=== PATIENT | female | born 1940 | race Caucasian/White ===

== ENCOUNTER → 2016-05-21 | Outpatient (CLI) | payer MEDICARE, BC ==
[~2016-05-21] MED LIST: ATEN-102 PO; ATEN50TA PO; ATOR40TA16 PO; ATOR40TA49 PO; BACT800T5 PO; BENA20TA PO; BENA20TA3 PO; CALC-179; CALC250T PO; CLOP75 PO; CLOP75TA PO; ESTR42.5V VAGINAL; LEVO.15 PO; LEVO150T7 PO; LORA-373 PO; LORA-392 PO; NITR1CAP37 PO; PROP225T PO; PROP300T PO; RYTH150T PO; RYTH225C PO; TAB-TAB PO
[2016-05-21 14:54] LABS: BACTERIA, URINE MOD /hpf; BLOOD, URINE TRACE (NEG); COMMENT (UR) CULTURE INDICATED; CULTURE IF INDICATED CULTURE INDICATED; GLUCOSE,URINE NEG (NEG); KETONE, URINE NEG (NEG); URINE COLOR YELLOW (YELLW/STRAW)
[2016-05-21 14:56] LABS: NITRITE,URINE POS (NEG)
== END ==
LOC: CLAB 14:33
PROVIDERS: ATTEND Obstetrics & Gynecology Gynecology
DX: N39.0 Urinary tract infection, site not specified (principal)
CPT/HCPCS: 81001; 87077; 87086; 87186

== ENCOUNTER 2016-08-04 10:45 | Emergency (ER) | payer MEDICARE, BC ==
[~2016-08-04 10:45] MED LIST changes: -ATEN-102 PO; -ATOR40TA49 PO; -CALC250T PO; -CLOP75 PO; -LEVO.15 PO; -LORA-392 PO; -PROP300T PO; -RYTH150T PO; -RYTH225C PO; -TAB-TAB PO
[2016-08-04 10:48] VITALS: BP 165/100; PULSE 139; RESP 16; TEMP 97.6; O2SAT 99
[2016-08-04 10:59] VITALS: BP 154/88; PULSE 140; RESP 18; O2SAT 97
--- NOTE | 2016-08-04 11:05 | PD ---
HPI Chief Complaint: Cardiac Complaint Time Seen by Provider: 11:03 Travel History International Travel<30 days: No Contact w/Intl Traveler<30days: No Traveled to known affect area: No History of Present Illness HPI 75-year-old female came to the emergency room with history of tachycardia. Patient says that she has been taking care of her who is sick. She went to check her oxygen saturation today and decided to check her own as well. She says she was saturating 97-98% but noticed that her heart rate was in 140s. At which point she realized that she has not been feeling 100% and has been feeling weak for past couple days. This when she decided come to the emergency room and be checked out. Her heart rate upon arrival was in 140s. Patient is denying of any chest pain or any syncopal episode. She has history of pacemaker and atrial tachycardia. She is on atenolol she said. PFSH Past Medical History Narrative Medical List of her past medical, surgical, social and family history is reviewed from the nursing note. Hx Anticoagulant Therapy: Yes (PLAVIX) Asthma: No Blood Disorders: No Anxiety: Yes Heart Rhythm Problems: Yes (PVC'S pacemaker for bradycardia) Cancer: Yes (SKIN Ca) Cardiac Catheterization: No Cardiovascular Problems: Yes (PACEMAKER) High Cholesterol: Yes Congestive Heart Failure: No COPD: No Diabetes: No Diminished Hearing: Yes (HEARING AIDS ANTOINE) Genitourinary: Yes (frequent UTIs) Hypertension: Yes Immune Disorder: No Implanted Vascular Access Dvce: Yes Kidney Stones: Yes (1991) Musculoskeletal: No Neurologic: Yes Reproductive: No Respiratory: No Sleep Apnea: No Thyroid Disease: Yes (HYPO) Menopausal: Yes Past Surgical History Body Medical Devices: PACEMAKER 2010 Cardiac Surgery: Yes (PACEMAKER PLACED DEC 2010) Coronary Artery Bypass Graft: No Genitourinary Surgery: Yes (BLADDER SUSPENSION ) Hysterectomy: Yes Pacemaker: Yes Other Surgery: Yes Family History Family Myocardial Infarction: Yes Social History Alcohol Use: Yes (WINE GLASS DAILY) Tobacco Use: No (QUIT 2004) Substance Use: No Allergies-Medications (Allergen,Severity, Reaction): Coded Allergies: Zoloft (Verified Allergy, Severe, 08/05/16) MRI PRECAUTION (Verified Adverse Reaction, Severe, 08/05/16) PT HAS A PACEMAKER Morphine (Verified Adverse Reaction, Severe, Nausea/Vomiting, 08/05/16) Comments List of her allergies reviewed from the nursing note. Reported Meds & Prescriptions Reported Meds & Active Scripts Active Propafenone (Propafenone HCl) 300 Mg Tab 300 Mg PO Q8HR Bactrim DS (Sulfamethoxazole-Trimethoprim) 800-160 Mg Tab 1 Tab PO BID Estrace Vaginal (Estradiol) 0.01% Cream 1 Gm VAGINAL HS Reported Calcium (Jjjzeax-Oywebbrhvh-Ofgcdpw D-Magnesium) [id number] Ab-Qx-Pnpm-Mg Tab 325 Lorazepam 0.5 Mg Tab 0.5 Mg PO HS PRN Benazepril (Benazepril HCl) 20 Mg Tab 20 Mg PO DAILY Propafenone (Propafenone HCl) 225 Mg Tab 225 Mg PO TID Atorvastatin (Atorvastatin Calcium) 40 Mg Tab 40 Mg PO HS Levothyroxine (Levothyroxine Sodium) 150 Mcg Tab 150 Mcg PO DAILY Clopidogrel (Clopidogrel Bisulfate) 75 Mg Tab 75 Mg PO DAILY Atenolol 50 Mg Tab 50 Mg PO DAILY Narrative Medication List of her home medications are reviewed from the nursing note. Review of Systems Except as stated in HPI: all other systems reviewed are Neg Physical Exam Narrative GENERAL: Awake, alert, elderly, mild distress SKIN: Focused skin assessment warm/dry. Pale. HEAD: Atraumatic. Normocephalic. EYES: Pupils equal and round. No scleral icterus. No injection or drainage. ENT: No nasal bleeding or discharge. Dry mucous membrane NECK: Trachea midline. No JVD. CARDIOVASCULAR: Regular rate and rhythm. No murmur appreciated. RESPIRATORY: No accessory muscle use. Clear to auscultation. Breath sounds equal bilaterally. GASTROINTESTINAL: Abdomen soft, non-tender, nondistended. Hepatic and splenic margins not palpable. MUSCULOSKELETAL: No obvious deformities. No clubbing. No cyanosis. No edema. NEUROLOGICAL: Awake and alert. No obvious cranial nerve deficits. Motor grossly within normal limits. Normal speech. PSYCHIATRIC: Appropriate mood and affect; insight and judgment normal. Data Data Last Documented VS Vital Signs Date Time Temp Pulse Resp B/P Pulse Ox O2 Delivery O2 Flow Rate FiO2 08/04/16 12:25 80 18 130/60 99 Nasal Cannula 2 08/04/16 10:48 97.6 Orders Electrocardiogram (08/04/16 ) Adenosine Inj (Adenocard Inj) (08/04/16 11:07) Electrocardiogram (08/04/16 11:07) Basic Metabolic Panel (Bmp) (08/04/16 11:07) Ckmb (Isoenzyme) Profile (08/04/16 11:07) Complete Blood Count With Diff (08/04/16 11:07) Magnesium (Mg) (08/04/16 11:07) Prothrombin Time / Inr (Pt) (08/04/16 11:07) Act Partial Throm Time (Ptt) (08/04/16 11:07) Troponin I (08/04/16 11:07) Chest, Single Ap (08/04/16 11:07) Ecg Monitoring (08/04/16 11:07) Bilateral Bp Monitoring (08/04/16 11:07) Iv Access Insert/Monitor (08/04/16 11:07) Oximetry (08/04/16 11:07) Oxygen Administration (08/04/16 11:07) Sodium Chloride 0.9% Flush (Ns Flush) (08/04/16 11:15) Adenosine Inj (Adenocard Inj) (08/04/16 11:15) Diltiazem Inj (Cardizem Inj) (08/04/16 11:15) Diltiazem Inj (Cardizem Inj) (08/04/16 11:13) Thyroid Stimulating Hormone (08/04/16 11:19) Diltiazem (Cardizem) (08/04/16 11:30) Sodium Chlorid 0.9% 500 Ml Inj (Ns 500 M (08/04/16 11:30) Electrocardiogram (08/04/16 10:58) Labs Laboratory Tests Test 08/04/16 11:15 White Blood Count 6.3 TH/MM3 Red Blood Count 4.06 MIL/MM3 Hemoglobin 13.8 GM/DL Hematocrit 40.3 % Mean Corpuscular Volume 99.4 FL Mean Corpuscular Hemoglobin 33.9 PG Mean Corpuscular Hemoglobin 34.1 % Concent Red Cell Distribution Width 12.9 % Platelet Count 240 TH/MM3 Mean Platelet Volume 8.1 FL Neutrophils (%) (Auto) 70.4 % Lymphocytes (%) (Auto) 18.4 % Monocytes (%) (Auto) 8.1 % Eosinophils (%) (Auto) 2.5 % Basophils (%) (Auto) 0.6 % Neutrophils # (Auto) 4.4 TH/MM3 Lymphocytes # (Auto) 1.2 TH/MM3 Monocytes # (Auto) 0.5 TH/MM3 Eosinophils # (Auto) 0.2 TH/MM3 Basophils # (Auto) 0.0 TH/MM3 CBC Comment DIFF FINAL Differential Comment Prothrombin Time 11.6 SEC Prothromb Time International 1.0 RATIO Ratio Activated Partial 27.7 SEC Thromboplast Time Sodium Level 136 MEQ/L Potassium Level 4.3 MEQ/L Chloride Level 102 MEQ/L Carbon Dioxide Level 26.4 MEQ/L Anion Gap 8 MEQ/L Blood Urea Nitrogen 16 MG/DL Creatinine 0.79 MG/DL Estimat Glomerular Filtration 71 ML/MIN Rate Random Glucose 99 MG/DL Calcium Level 8.8 MG/DL Magnesium Level 2.0 MG/DL Total Creatine Kinase 93 U/L Troponin I LESS THAN 0.02 NG/ML Thyroid Stimulating Hormone 2.660 uIU/ML 3rd Gen [facility] Medical Decision Making Medical Screen Exam Complete: Yes Emergency Medical Condition: Yes Medical Record Reviewed: Yes Interpretation(s) Twelve-lead EKG was reviewed by me. No complex tachycardia. Heart rate of 1 39 bpm Differential Diagnosis Atrial flutter, SVT, atrial fibrillation Narrative Course 12:17 PM I initially gave the patient 6 mg of IV adenosine followed by 12 mg. She slowed down a little bit and went into multiple PVCs but then soon after went back to the narrow complex rhythm of 140s. I gave her 20 mg of IV Cardizem at that point which made her heart rate slowed down and now she is almost 100% paced. Awaiting for the blood test results to come back. If they' re within normal limit patient will be discharged home. She was also given by mouth Cardizem. 12:31 PM all the blood test results of back and within normal limit. Chest x- rays within normal limit. Her heart rate is in the 80s. I'm comfortable discharging her home at this point. Critical Care Narrative Aggregate critical care time was 30 minutes. Time to perform other separately billable procedures was not included in the critical care time. My time did not include minutes spent treating any other patients simultaneously or on activities that did not directly contribute to the patient's treatment. The services I provided to this patient were to treat and/or prevent clinically significant deterioration that could result in: Narrow complex tachycardia with chemical cardioversion I provided critical care services requiring my management, as noted below: Chart data review, documentation time, medication orders and management, vital sign assessments/reviewing monitor data, ordering and reviewing lab tests, ordering and interpreting/reviewing x-rays and diagnostic studies, care of the patient and discussion of the patient with the admitting physicians. Procedures Procedure Narrative Chemical cardioversion attempted with Adenosine initially with 6mg followed by 12 mg but was unsuccessful. Then cardioverted/slow HR with 20 mg of Cardizem. Patient tolerated the procedure well. EKG Prior to Arrival: No Diagnosis Primary Impression: Paroxysmal atrial flutter Additional Impression: Narrow complex tachycardia Referrals: Primary Care Physician 2 days Additional Instructions: Please return to the ER if the condition worsens or any other new concerns. Otherwise follow-up with your primary care. Please call your flexible machining system machinist and follow-up with your flexible machining system machinist as well. Med/Other Pt SpecificInfo: No Change to Meds Disposition: 01 DISCHARGE HOME Condition: Stable Adolfo Heath MD August 04, 2016 11:05
[2016-08-04] MEDS ORDERED: ADENOSINE IV SOLN 3 MG/ML 2 ML VIAL ONE (11:07)
[2016-08-04] MEDS ORDERED: DILTIAZEM HCL 25 MG/5 ML VIAL ONE (11:13)
[2016-08-04] MEDS ORDERED: SODIUM CHLORIDE 0.9% FLUSH 10 ML FLUSH IVF PRN (11:15)
[2016-08-04] MEDS ORDERED: DILTIAZEM HCL 25 MG/5 ML VIAL IV ONE (11:15)
[2016-08-04] MEDS ORDERED: ADENOSINE IV SOLN 3 MG/ML 2 ML VIAL IV PUSH ONE (11:15)
[2016-08-04 11:17] VITALS: BP 102/52; PULSE 82; RESP 20; O2SAT 99
[2016-08-04] MEDS ORDERED: DILTIAZEM HCL 90 MG TAB PO ONE (11:30)
[2016-08-04] MEDS ORDERED: SODIUM CHLORID 0.9% 500 ML INJ 500 ML IV ONE (11:30)
--- NOTE | 2016-08-04 11:33 | RADRPT ---
EXAM DATE/TIME: 08/04/2016 11:25 [facility] COMPARISON: CHEST SINGLE AP, November 24, 2015, 7:35. INDICATIONS : Chest pain. MEDICAL HISTORY : Hypertension. SURGICAL HISTORY : Pacemaker. ENCOUNTER: Initial ACUITY: 1 day PAIN SCORE: 5/10 LOCATION: Bilateral chest FINDINGS: A single view of the chest demonstrates the lungs to be symmetrically aerated without evidence of mas s, infiltrate or effusion. Cardiomegaly. Left-sided pacemaker unchanged. The cardiomediastinal conto urs are unremarkable. Osseous structures are intact. CONCLUSION: No acute disease. Cardiomegaly. Fabian Bess MD on August 04, 2016 at 11:31 Board Certified Radiologist. This report was verified electronically.
[2016-08-04 11:52] LABS: AUTOMATED NEUTROPHIL # 4.4 TH/MM3 (1.8-7.7); BASOPHIL % 0.6 % (0.0-2.0); EOSINOPHIL # 0.2 TH/MM3 (0-0.4); EOSINOPHIL % 2.5 % (0.0-4.0); HEMATOCRIT 40.3 % (35.0-46.0); HEMO FLAGS DIFF FINAL; LYMPH % 18.4 % (9.0-44.0); LYMPHOCYTE # 1.2 TH/MM3 (1.0-4.8); MEAN CELL VOLUME 99.4 FL (80.0-100.0); MEAN CORPUSCULAR HEMOGLOBIN 33.9 PG (27.0-34.0); MEAN CORPUSCULAR HGB CONC 34.1 % (32.0-36.0); MONO % 8.1 % (0.0-8.0); NEUT % 70.4 % (16.0-70.0); PLATELET COUNT 240 TH/MM3 (150-450); RED BLOOD COUNT 4.06 MIL/MM3 (4.00-5.30); RED CELL DISTRIBUTION WIDTH 12.9 % (11.6-17.2); WHITE BLOOD COUNT 6.3 TH/MM3 (4.0-11.0)
[2016-08-04 12:04] LABS: APTT (PATIENT) 27.7 SEC (24.3-30.1); PROTHROMBIN TIME - PATIENT 11.6 SEC (9.8-11.6)
[2016-08-04 12:18] LABS: ANION GAP 8 MEQ/L (5-15); BICARBONATE 26.4 MEQ/L (21.0-32.0); BLOOD UREA NITROGEN 16 MG/DL (7-18); CHLORIDE 102 MEQ/L (98-107); GLOMERULAR FILTRATION RATE 71 ML/MIN (>89); POTASSIUM 4.3 MEQ/L (3.5-5.1); SODIUM (NA) 136 MEQ/L (136-145)
[2016-08-04 12:23] LABS: CREATINE KINASE 93 U/L (26-192)
[2016-08-04 12:25] VITALS: BP 130/60; PULSE 80; RESP 18; O2SAT 99
[2016-08-05] MEDS ORDERED: PROP300T PO (13:43)
--- NOTE | 2016-08-05 15:31 | EKG ---
Date Performed: 08/04/2016 Time Performed: 10:58:33 PTAGE: 75 years EKG: LIKELY ATRIAL FLUTTER WITH RAPID VENTRICULAR RESPONSE ST DEPRESSIONS ARE PRESENT IN LEADS V 5 AND V6 WHICH MAY BE RATE RELATED, BUT CONSIDER ISCHEMIA. ABNORMAL ECG PREVIOUS TRACING : 11/24/2015 07.36 Compared to previous tracing, ventricular response to atria l fibrillation/flutter has increased. DOCTOR: Kingston Small Interpretating Date/Time 08/05/2016 16:11:44
--- NOTE | 2016-08-05 16:10 | EKG ---
Date Performed: 08/04/2016 Time Performed: 11:17:10 PTAGE: 75 years EKG: ELECTRONIC VENTRICULAR PACEMAKER WITH LIKELY UNDERLYING ATRIAL FIBRILLATION ABNORMAL RHYTHM ECG PREVIOUS TRACING : 08/04/2016 10.58 Compared to previous tracing, ventricular pacing is now see n. DOCTOR: Kingston Small Interpretating Date/Time 08/05/2016 16:09:31
== END 2016-08-04 13:40 | disposition home or self-care (01) ==
LOC: NEPE 10:45
DX: I48.92 Unspecified atrial flutter (principal); R00.0 Tachycardia, unspecified; R53.1 Weakness; E78.00 Pure hypercholesterolemia, unspecified; I10 Essential (primary) hypertension; Z95.0 Presence of cardiac pacemaker; Z87.442 Personal history of urinary calculi; Z87.891 Personal history of nicotine dependence; Z79.01 Long term (current) use of anticoagulants
CPT/HCPCS: 71010; 80048; 82550; 83735; 84443; 84484; 85025; 85610; 85730; 93005; 96374; 96375; 99291; J0153; J7040

== ENCOUNTER 2016-08-05 10:41 | Emergency (ER) | payer MEDICARE, BC ==
[2016-08-05 10:42] VITALS: BP 142/87; PULSE 134; RESP 24; TEMP 97.9; O2SAT 97
[2016-08-05 11:00] VITALS: BP 149/89; PULSE 136; RESP 16; O2SAT 98
[2016-08-05 11:12] VITALS: RESP 18; O2SAT 98
[2016-08-05] MEDS ORDERED: SODIUM CHLORIDE 0.9% FLUSH 10 ML FLUSH IVF PRN ×2 (11:15→11:30)
--- NOTE | 2016-08-05 11:20 | RADRPT ---
EXAM DATE/TIME: 08/05/2016 11:05 [facility] COMPARISON: CHEST SINGLE AP, August 04, 2016, 11:25. INDICATIONS : Patient states chest pains. MEDICAL HISTORY : Hypertension. SURGICAL HISTORY : Pacemaker. ENCOUNTER: Initial ACUITY: 2 days PAIN SCORE: 4/10 LOCATION: Bilateral chest FINDINGS: The cardiac and mediastinal contours are within normal limits. The lungs are clear. There is a transv enous pacer in good position. Note is made of a rotatory scoliosis. CONCLUSION: 1. No acute findings identified. Stable compared to previous. Ivan Rm MD on August 05, 2016 at 11:17 Board Certified Radiologist. This report was verified electronically.
[2016-08-05] MEDS ORDERED: DILTIAZEM INJ 125 MG in SODIUM CHLORIDE 0.9% INJ 100 ML IV SCH (11:30)
[2016-08-05] MEDS ORDERED: DILTIAZEM HCL 25 MG/5 ML VIAL IV PUSH ONE (11:30)
[2016-08-05 11:40] LABS: AUTOMATED NEUTROPHIL # 4.3 TH/MM3 (1.8-7.7); BASOPHIL # 0.1 TH/MM3 (0-0.2); EOSINOPHIL # 0.1 TH/MM3 (0-0.4); EOSINOPHIL % 1.7 % (0.0-4.0); HEMATOCRIT 44.9 % (35.0-46.0); HEMO FLAGS DIFF FINAL; LYMPH % 19.7 % (9.0-44.0); LYMPHOCYTE # 1.2 TH/MM3 (1.0-4.8); MEAN CELL VOLUME 100.1 FL (80.0-100.0); MEAN CORPUSCULAR HEMOGLOBIN 33.1 PG (27.0-34.0); MONO % 8.3 % (0.0-8.0); NEUT % 69.3 % (16.0-70.0); PLATELET COUNT 232 TH/MM3 (150-450); RED BLOOD COUNT 4.49 MIL/MM3 (4.00-5.30); WHITE BLOOD COUNT 6.2 TH/MM3 (4.0-11.0)
[2016-08-05 11:54] LABS: ANION GAP 8 MEQ/L (5-15); APTT (PATIENT) 27.1 SEC (24.3-30.1); BICARBONATE 26.2 MEQ/L (21.0-32.0); BLOOD UREA NITROGEN 13 MG/DL (7-18); CHLORIDE 102 MEQ/L (98-107); GLOMERULAR FILTRATION RATE 61 ML/MIN (>89); POTASSIUM 4.3 MEQ/L (3.5-5.1); PROTHROMBIN TIME - PATIENT 11.3 SEC (9.8-11.6); SODIUM (NA) 136 MEQ/L (136-145)
--- NOTE | 2016-08-05 11:55 | PD ---
HPI Chief Complaint: Cardiac Complaint Time Seen by Provider: 11:02 Travel History International Travel<30 days: No Contact w/Intl Traveler<30days: No Traveled to known affect area: No History of Present Illness HPI This is a 75-year-old female with history of pacemaker, cardiomyopathy, who presents here for the second day with complaints of tachycardia and chest tightness. The patient was seen yesterday and treated for paroxysmal atrial flutter with a dental cart. At that time, she was noted to be in a paced rhythm at the time of discharge. She presents today with recurrent tachycardia. She also reports some tightness in her left sided chest. There is mild shortness of breath associated with the discomfort. There is no reported fevers, chills. No other complaints time of my examination. PFSH Past Medical History Hx Anticoagulant Therapy: Yes (PLAVIX) Asthma: No Blood Disorders: No Anxiety: Yes Heart Rhythm Problems: Yes (PVC'S pacemaker for bradycardia) Cancer: Yes (SKIN Ca) Cardiac Catheterization: No Cardiovascular Problems: Yes (PACEMAKER, MITRAL VALVE PROLAPSE, BRADYCARDIA; low EF) High Cholesterol: Yes Congestive Heart Failure: No COPD: No Diabetes: No Diminished Hearing: Yes (HEARING AIDS ANTOINE) Genitourinary: Yes (frequent UTIs) Hypertension: Yes Immune Disorder: No Implanted Vascular Access Dvce: Yes Kidney Stones: Yes (1991) Musculoskeletal: No Neurologic: Yes Reproductive: No Respiratory: No Sleep Apnea: No Thyroid Disease: Yes (HYPO) Influenza Vaccination: Yes Menopausal: Yes Past Surgical History Body Medical Devices: PACEMAKER 2010 Cardiac Surgery: Yes (PACEMAKER PLACED DEC 2010) Coronary Artery Bypass Graft: No Eye Surgery: Yes (laser retinal tear) Genitourinary Surgery: Yes (BLADDER SUSPENSION ) Hysterectomy: Yes Pacemaker: Yes Tonsillectomy: Yes Other Surgery: Yes Family History Family Myocardial Infarction: Yes Social History Alcohol Use: No Tobacco Use: No (QUIT 2004) Substance Use: No Allergies-Medications (Allergen,Severity, Reaction): Coded Allergies: Zoloft (Verified Allergy, Severe, 08/05/16) MRI PRECAUTION (Verified Adverse Reaction, Severe, 08/05/16) PT HAS A PACEMAKER Morphine (Verified Adverse Reaction, Severe, Nausea/Vomiting, 08/05/16) Reported Meds & Prescriptions Reported Meds & Active Scripts Active Propafenone (Propafenone HCl) 300 Mg Tab 300 Mg PO Q8HR Bactrim DS (Sulfamethoxazole-Trimethoprim) 800-160 Mg Tab 1 Tab PO BID Estrace Vaginal (Estradiol) 0.01% Cream 1 Gm VAGINAL HS Reported Calcium (Hwfjeyp-Wuwxmpildi-Sbxzuyj D-Magnesium) [id number] Kn-Hl-Zoqd-Mg Tab 325 Lorazepam 0.5 Mg Tab 0.5 Mg PO HS PRN Benazepril (Benazepril HCl) 20 Mg Tab 20 Mg PO DAILY Propafenone (Propafenone HCl) 225 Mg Tab 225 Mg PO TID Atorvastatin (Atorvastatin Calcium) 40 Mg Tab 40 Mg PO HS Levothyroxine (Levothyroxine Sodium) 150 Mcg Tab 150 Mcg PO DAILY Clopidogrel (Clopidogrel Bisulfate) 75 Mg Tab 75 Mg PO DAILY Atenolol 50 Mg Tab 50 Mg PO DAILY Review of Systems Except as stated in HPI: all other systems reviewed are Neg General / Constitutional: No: Fever, Chills HENT: No: Headaches, Lightheadedness Cardiovascular: Positive: Chest Pain or Discomfort (tightness), Palpitations, Irregular Rhythm, Tachycardia Respiratory: No: Cough, Shortness of Breath Gastrointestinal: No: Nausea, Vomiting, Abdominal Pain Genitourinary: No: Incontinence, Dyspareunia Musculoskeletal: No: Edema, Pain Neurologic: No: Weakness, Dizziness, Syncope, Headache Physical Exam Narrative GENERAL: Well-developed well-nourished female in no acute respiratory distress. SKIN: Focused skin assessment warm/dry. HEAD: Atraumatic. Normocephalic. EYES: No scleral icterus. No injection or drainage. ENT: No nasal bleeding or discharge. Mucous membranes pink and moist. NECK: Trachea midline. No JVD. CARDIOVASCULAR: Tachycardic with a rate in the 130s 140s. It appears to be regular with occasional PVC. RESPIRATORY: No accessory muscle use. Clear to auscultation. Breath sounds equal bilaterally. GASTROINTESTINAL: Abdomen soft, non-tender, nondistended. Hepatic and splenic margins not palpable. MUSCULOSKELETAL: No obvious deformities. No clubbing. No cyanosis. No edema. NEUROLOGICAL: Awake and alert. No obvious cranial nerve deficits. Motor grossly within normal limits. Normal speech. PSYCHIATRIC: Appropriate mood and affect; insight and judgment normal. Data Data Last Documented VS Vital Signs Date Time Temp Pulse Resp B/P Pulse Ox O2 Delivery O2 Flow Rate FiO2 08/05/16 13:00 80 16 126/65 99 Nasal Cannula 2 5/15/17 10:42 97.9 Orders Electrocardiogram (08/05/16 11:02) Basic Metabolic Panel (Bmp) (08/05/16 11:02) Ckmb (Isoenzyme) Profile (08/05/16 11:02) Complete Blood Count With Diff (08/05/16 11:02) Magnesium (Mg) (08/05/16 11:02) Prothrombin Time / Inr (Pt) (08/05/16 11:02) Act Partial Throm Time (Ptt) (08/05/16 11:02) Troponin I (08/05/16 11:02) Chest, Single Ap (08/05/16 11:02) Ecg Monitoring (08/05/16 11:02) Bilateral Bp Monitoring (08/05/16 11:02) Iv Access Insert/Monitor (08/05/16 11:02) Oximetry (08/05/16 11:02) Oxygen Administration (08/05/16 11:02) Sodium Chloride 0.9% Flush (Ns Flush) (08/05/16 11:15) Thyroid Stimulating Hormone (08/05/16 11:26) Diltiazem Inj (Cardizem Inj) (08/05/16 11:30) Diltiazem Inj (Cardizem Inj) (08/05/16 11:30) Sodium Chloride 0.9% Flush (Ns Flush) (08/05/16 11:30) Propafenone (Rythmol) (08/05/16 13:45) Labs Laboratory Tests Test 08/05/16 11:10 White Blood Count 6.2 TH/MM3 Red Blood Count 4.49 MIL/MM3 Hemoglobin 14.8 GM/DL Hematocrit 44.9 % Mean Corpuscular Volume 100.1 FL Mean Corpuscular Hemoglobin 33.1 PG Mean Corpuscular Hemoglobin 33.0 % Concent Red Cell Distribution Width 13.0 % Platelet Count 232 TH/MM3 Mean Platelet Volume 8.0 FL Neutrophils (%) (Auto) 69.3 % Lymphocytes (%) (Auto) 19.7 % Monocytes (%) (Auto) 8.3 % Eosinophils (%) (Auto) 1.7 % Basophils (%) (Auto) 1.0 % Neutrophils # (Auto) 4.3 TH/MM3 Lymphocytes # (Auto) 1.2 TH/MM3 Monocytes # (Auto) 0.5 TH/MM3 Eosinophils # (Auto) 0.1 TH/MM3 Basophils # (Auto) 0.1 TH/MM3 CBC Comment DIFF FINAL Differential Comment Prothrombin Time 11.3 SEC Prothromb Time International 1.0 RATIO Ratio Activated Partial 27.1 SEC Thromboplast Time Sodium Level 136 MEQ/L Potassium Level 4.3 MEQ/L Chloride Level 102 MEQ/L Carbon Dioxide Level 26.2 MEQ/L Anion Gap 8 MEQ/L Blood Urea Nitrogen 13 MG/DL Creatinine 0.90 MG/DL Estimat Glomerular Filtration 61 ML/MIN Rate Random Glucose 106 MG/DL Calcium Level 8.9 MG/DL Magnesium Level 2.0 MG/DL Total Creatine Kinase 90 U/L Troponin I LESS THAN 0.02 NG/ML MDM Medical Decision Making Medical Screen Exam Complete: Yes Emergency Medical Condition: Yes Interpretation(s) Last Impressions Chest X-Ray 08/05/16 1102 Signed Impressions: Service Date/Time: Friday, August 05, 2016 11:05 - CONCLUSION: 1. No acute findings identified. Stable compared to previous. Ivan Rm MD Differential Diagnosis A flutter versus A. fib versus sinus tachycardia versus ACS Narrative Course 75-year-old female with a history of paced rhythm, presents secondary to with complaints of palpitations. The patient was noted to be in a flutter with RVR. She was given a loading dose of Cardizem which dropped her rate down low enough for her pacemaker to take over. She is discomfort free at this time. She states she feels well. Initially the concern was she would need to be admitted to the hospital. I spoke with Dr. Devon Julien, her oil derrick operator, who at this point feels as though she probably can be discharged. He states he'll see her tomorrow morning at 9:15 in his office. He recommended we increase her propafenone to 300 mg 3 times daily from the 225 dose that she's currently taking. I discussed this with the patient and she is amenable to this plan. She'll be given her first dose here in the emergency department. Physician Communication Physician Communication Spoke with Dr. Julien who recommends increasing propafenone to 300 mg 3 times daily from the current prescribed dose of 225 mg. Diagnosis Primary Impression: Paroxysmal atrial flutter Referrals: Sánchez Julien MD Additional Instructions: Stop taking propafenone 225 mg and start taking propafenone 300 mg 3 times a day. Follow up with Dr. Julien at 9:15 AM tomorrow. Med/Other Pt SpecificInfo: Prescription(s) given Scripts Propafenone 300 Mg [id number] Mg PO Q8HR #90 TAB Ref 0 Prov:Lloyd Riley MD 08/05/16 Disposition: 01 DISCHARGE HOME Condition: Stable Lloyd Riley MD August 05, 2016 11:55
[2016-08-05 12:00] VITALS: BP 126/67; PULSE 78; RESP 16; O2SAT 98
[2016-08-05 12:02] LABS: CREATINE KINASE 90 U/L (26-192)
[2016-08-05 13:00] VITALS: BP 126/65; PULSE 80; RESP 16; O2SAT 99
[2016-08-05] MEDS ORDERED: PROP300T PO (13:43)
[2016-08-05] MEDS ORDERED: PROPAFENONE HCL 150 MG TAB PO ONE (13:45)
[2016-08-05 14:18] VITALS: PULSE 88; RESP 16; O2SAT 98
--- NOTE | 2016-08-06 15:40 | EKG ---
Date Performed: 08/05/2016 Time Performed: 10:58:23 PTAGE: 75 years EKG: ATRIAL FIBRILLATION/FLUTTER WITH RAPID VENTRICULAR RESPONSE INTRAVENTRICULAR CONDUCTION DEL AY PROBABLE INFERIOR MYOCARDIAL INFARCTION Compared to the previous tracing ventricular response to a trial fibrillation has increased and demand pacing is not seen. ABNORMAL ECG PREVIOUS TRACING : 08/04/16 DOCTOR: Kingston Small Interpretating Date/Time 08/06/2016 15:39:00
== END 2016-08-05 14:49 | disposition home or self-care (01) ==
LOC: NEPC 10:41
DX: I48.92 Unspecified atrial flutter (principal); I34.1 Nonrheumatic mitral (valve) prolapse; I10 Essential (primary) hypertension; Z95.0 Presence of cardiac pacemaker; Z79.01 Long term (current) use of anticoagulants
CPT/HCPCS: 71010; 80048; 82550; 83735; 84443; 84484; 85025; 85610; 85730; 93005; 96365; 96366; 96376